=== PATIENT | male | born 1950 | race Hispanic/Latino ===

== ENCOUNTER 2019-01-23 07:33 | Day surgery (SDC) | payer MEDICARE ==
[2019-01-23] MEDS ORDERED: ASPIRIN EC 325 MG TAB PO ONE ×2 (08:40→08:54)
[2019-01-23] MEDS ORDERED: SODIUM CHLORIDE 0.9% 500 ML 500 ML ONE (08:52)
[2019-01-23] MEDS ORDERED: SODIUM CHLORIDE 0.9% 500 ML 500 ML IV SCH (09:00)
[2019-01-23 09:19] LABS: Basophils # (Auto) 0.1 K/mm3 (0.0-0.1); Basophils % (Auto) 1.1 % (0.0-1.8); Eosinophils # (Auto) 0.3 K/mm3 (0.0-0.4); Eosinophils % (Auto) 4.7 % (0.0-4.3); Hematocrit 40.1 % (35.5-45.6); Hemoglobin 13.7 gm/dl (11.8-15.2); Lymphocytes # (Auto) 0.9 K/mm3 (1.2-5.4); Lymphocytes % (Auto) 15.9 % (13.4-35.0); Mean Corpuscular HGB Conc 34 % (32-34); Mean Corpuscular Volume 90 fl (84-94); Monocytes # (Auto) 0.6 K/mm3 (0.0-0.8); Monocytes % (Auto) 11.9 % (0.0-7.3); Platelet Count 417 K/mm3 (140-440); Red Blood Count 4.48 M/mm3 (3.65-5.03); Red Cell Distribution Width 13.5 % (13.2-15.2)
[2019-01-23 09:29] LABS: BUN/Creatinine Ratio 13; Blood Urea Nitrogen 14 mg/dL (9-20); Calcium 8.9 mg/dL (8.4-10.2); Hemolysis Index 12
[2019-01-23] MEDS ORDERED: MIDAZOLAM 2 MG/2 ML INJ ONE (09:54)
[2019-01-23] MEDS ORDERED: HEPARIN/NS 5000 UNIT/500ML 1,000 ML IR ONE (09:54)
[2019-01-23] MEDS ORDERED: fentaNYL 100 MCG/2 ML INJ ONE (09:54)
[2019-01-23] MEDS ORDERED: HEPARIN 10,000 UNITS/10 ML VIAL ONE (09:54)
[2019-01-23] MEDS ORDERED: VERAPAMIL 5 MG/2 ML INJ ONE (09:54)
[2019-01-23] MEDS ORDERED: LIDOCAINE (2%) 20 MG/1 ML VIAL 20 ML MDV INFILTRATI ONE (09:54)
[2019-01-23] MEDS ORDERED: NITROGLYCERIN SYRINGE 3 ML ONE (10:23)
[2019-01-23 10:28] LABS: INR 1.15 (0.87-1.13); Partial Thromboplastin Time 26.6 Sec. (24.2-36.6)
[2019-01-23] MEDS: METOPROLOL TARTRATE 5 MG/5 ML INJ IV ONE ×2 (10:32→10:34)
--- NOTE | 2019-01-23 11:01 | Short Stay Summary ---
Short Stay Documentation Date of service: 01/23/19 - History H&P: obtained from office - Allergies and Medications Current Medications: Allergies No Known Allergies Allergy (Unverified 01/23/19 07:33) Home Medications Medication Instructions Recorded Confirmed Last Taken Type AtorvaSTATin [Lipitor] 10 mg PO QHS 01/23/19 01/23/19 01/22/19 History Fexofenadine HCl [Nayn Allergy] 60 mg PO PRN PRN 01/23/19 01/23/19 01/22/19 History Fluticasone/Salmeterol [Advair 1 puff IH BID 01/23/19 01/23/19 01/22/19 History Diskus 500-50 mcg] Losartan [Cozaar] 50 mg PO QDAY 01/23/19 01/23/19 01/22/19 History Tizanidine HCl [Tizanidine 2mg tab] 2 mg PO PRN PRN 01/23/19 01/23/19 3 Days Ago History ~01/20/19 Active Medications Sodium Chloride (Nacl 0.9% 500 Ml) 500 mls @ 50 mls/hr IV DIRECT ROBYN Stop: 01/23/19 18:59 Last Admin: 01/23/19 09:45 Dose: 50 mls/hr Documented by: - Brief post op/procedure progress note Date of procedure: 01/23/19 Pre-op diagnosis: sob and chf Post-op diagnosis: same Procedure: see report Anesthesia: local Estimated blood loss: none Pathology: none - Disposition Condition at discharge: Good Disposition: DC-01 TO HOME OR SELFCARE - Discharge Diagnoses (1) SOBOE (shortness of breath on exertion) Status: Acute (2) Asthma Status: Chronic Qualifiers: Asthma severity: unspecified severity Asthma complication type: unspecified (3) Cardiomyopathy Status: Acute Qualifiers: Cardiomyopathy type: dilated Qualified Code(s): I42.0 - Dilated ca rdiomyopathy (4) CAD (coronary artery disease) Status: Acute Qualifiers: Coronary Disease-Associated Artery/Lesion type: [place] artery [place] vs. transplanted heart: [place] heart Associated angina: without angina Qualified Code(s): I25.10 - Atherosclerotic heart disease of [place] coronary artery without angina pectoris (5) LBBB (left bundle branch block) Status: Chronic (6) Hypertension Status: Chronic Qualifiers: Hypertension type: essential hypertension Qualified Code(s): I10 - Essential (primary) hypertension (7) Hyperlipemia, mixed Status: Chronic Short Stay Discharge Plan Activity: advance as tolerated Diet: low fat, low cholesterol, low salt Wound: keep clean and dry Follow up with: SKYLER RIGGS MD [Primary Care Provider] - 7 Days
--- NOTE | 2019-01-23 11:08 | Cardiac Catherization Report ---
LEFT HEART CATHETERIZATION ORDERING: Dr. Richar Donnelly. Being done by Dr. Pool. CLINICAL INFORMATION: A 68-year-old patient with cardiac asthma, has moderate LV dysfunction, EF 25-30%. He is here for cardiomyopathy with shortness of breath to rule out coronary artery disease. Procedure was done with moderate sedation. Total sedation time was 20 minutes, started 10:16 a.m., finished at 10:36 a.m. Procedure was done via the right radial artery, sterile technique, local anesthesia, 6-[place] radial sheath inserted. PROCEDURE FINDINGS: Left system engaged with JL3.5 catheter. Left main is a medium caliber vessel that is patent, bifurcates into medium caliber, LAD is patent with diffuse mild to moderate luminal irregularities. Diagonal 1, diagonal 2, diagonal 3 are small caliber vessels, patent with diffuse mild irregularities. Ramus is a small to medium caliber vessel, patent with diffuse mild luminal irregularities. Circumflex and AV groove is a medium caliber vessel, patent with mild luminal irregularities. OM1 is a small caliber vessel, has an ostial 80% lesion. RCA engaged with JR4, is a large dominant vessel, patent with mild luminal irregularities, diffusely, small PDA, PLV. LV gram done in NANCY and MARTINEZ shows mild tachycardia with mild LV dysfunction, EF 40-45%. LVEDP 21 mmHg, LV is 147/14. Aortic is 144/87 mmHg. No gradient across the aortic valve on pullback. A 5-[place] catheters all taken over a guidewire, a 6-[place] radial sheath was discontinued. Radial band applied. No hematoma, no bleeding. SUMMARY: Left main patent, LAD patent, mild irregularities. Diagonal 1, diagonal 2, diagonal 3 small caliber vessel, patent with mild luminal irregularities. Circumflex is a medium caliber vessel, patent with mild luminal irregularities. Ramus small to medium caliber vessel, patent with mild irregularities. OM1 ostial 80%, small caliber vessel. RCA large, dominant, patent with mild luminal irregularities. PDA and PLV small caliber vessel with mild LV dysfunction, nonischemic cardiomyopathy. Continue risk factor modification. Discussed in detail with the patient and the patient's family. JOB# [id number] VRM/NTS
[2019-01-23 13:12] VITALS: BP 127/80
[2019-01-23] MEDS ORDERED: SODIUM CHLORIDE*PRIMING MACHINE ONLY FOR DIALYSIS MC ONE (18:13)
== END 2019-01-23 13:40 | disposition home or self-care (01) ==
LOC: CATHLABREC 07:33
PROVIDERS: ATTEND Internal Medicine
DX: I42.0 Dilated cardiomyopathy (principal); R06.02 Shortness of breath; J45.909 Unspecified asthma, uncomplicated; I25.10 Atherosclerotic heart disease of native coronary artery without angina pectoris; I44.7 Left bundle-branch block, unspecified; E78.2 Mixed hyperlipidemia; I11.0 Hypertensive heart disease with heart failure; I50.9 Heart failure, unspecified; M19.90 Unspecified osteoarthritis, unspecified site; Z79.899 Other long term (current) drug therapy; Z98.890 Other specified postprocedural states
CPT/HCPCS: 36415; 80048; 85025; 85610; 85730; 93005; 93010; 93458; 99156; C1894; J1644; J2250; J3010; J7030; J7040; Q9967

== ENCOUNTER 2019-01-24 12:08 | Emergency (ER) | payer MEDICARE ==
--- NOTE | 2019-01-24 12:32 | Event Note ---
ED Screening Note Date of service: 01/24/19 Time: 12:27 ED Screening Note: This is a 68 y.o. M. that presents to the ER with SOB and weakness. Patient states he SOB with exertion or movement. He had a heart cath yesterday with [facility] and feel worse than prior to procedure. Denies CP, palpitations, dizziness This initial assessment/diagnostic orders/clinical plan/treatment(s) is/are subject to change based on patients health status, clinical progression and re- assessment by fellow clinical providers in the ED. Further treatment and workup at subsequent clinical providers discretion. Patient/guardian urged not to elope from the ED as their condition may be serious if not clinically assessed and managed. Initial orders include: Labs, ekg, & cxr
--- NOTE | 2019-01-24 13:17 | XRay Report ---
CHEST 1 VIEW, 01/24/2019 1:06 PM CLINICAL INFORMATION/INDICATION: Shortness of breath COMPARISON: None FINDINGS: SUPPORT DEVICES: None. HEART: The cardiac silhouette is normal in size. LUNGS/PLEURA: The lungs are clear of focal airspace consolidation or significant pleural effusion. ADDITIONAL FINDINGS: No additional acute findings. IMPRESSION: 1. No evidence of acute cardiopulmonary process. Signer Name: Judy Welch MD Signed: 01/24/2019 1:13 PM Workstation Name: [id number]
[2019-01-24 13:55] LABS: Alanine Aminotransferase 17 units/L (7-56); BUN/Creatinine Ratio 13; Blood Urea Nitrogen 15 mg/dL (9-20); Calcium 9.5 mg/dL (8.4-10.2); Hemolysis Index 3
[2019-01-24 14:00] LABS: Basophils # (Auto) 0.1 K/mm3 (0.0-0.1); Basophils % (Auto) 0.6 % (0.0-1.8); Eosinophils # (Auto) 0.2 K/mm3 (0.0-0.4); Hematocrit 41.8 % (35.5-45.6); Hemoglobin 13.9 gm/dl (11.8-15.2); Lymphocytes # (Auto) 0.8 K/mm3 (1.2-5.4); Lymphocytes % (Auto) 7.5 % (13.4-35.0); Mean Corpuscular HGB Conc 33 % (32-34); Mean Corpuscular Volume 90 fl (84-94); Monocytes # (Auto) 0.9 K/mm3 (0.0-0.8); Platelet Count 430 K/mm3 (140-440); Red Blood Count 4.65 M/mm3 (3.65-5.03); Red Cell Distribution Width 13.4 % (13.2-15.2)
--- NOTE | 2019-01-24 16:18 | Cat Scan Report ---
CTA CHEST WITH IV CONTRAST, 01/24/2019 INDICATION: Shortness of breath and chest pain. History of recent cardiac catheterization TECHNIQUE: Axial CT images were obtained through the chest after injection of IV contrast. Coronal oblique 2-D reconstruction images were produced. 3 plane MIP reconstruction images were produced at an [employer] workstation. All CTs at this facility utilize dose reduction techniques including automated expos ure control, iterative reconstruction and weight based dosing when appropriate to reduce patient radi ation dose to as low as reasonable achievable. COMPARISON: Chest radiograph, 01/24/2019 FINDINGS: Evaluation of the pulmonary arteries demonstrate no filling defects within the central or segmental p ulmonary arteries to suggest pulmonary embolism. The heart is normal in size. Multiple prominent but not pathologically enlarged mediastinal lymph nodes are noted. There is a 2 cm focus of groundglass d ensity in the right lung apex. There is a trace left pleural effusion. Limited evaluation of the upper abdomen demonstrates no evidence of acute abnormality. Multiple hepat ic cysts are noted. Evaluation of bony structures demonstrates no evidence of acute bony abnormality. IMPRESSION: 1. No evidence of pulmonary embolism. 2. Focal right apical groundglass density which represents a nonspecific finding. Considerations woul d include focal infectious or inflammatory process versus scar. In the absence of any previous studie s, clinical correlation and short-term CT follow-up is recommended to document clearing. 2. Trace left pleural effusion. Signer Name: Judy Welch MD Signed: 01/24/2019 4:14 PM Workstation Name: [id number]
--- NOTE | 2019-01-24 16:18 | Emergency Department Report ---
ED Shortness of Breath HPI - General Chief Complaint: Dyspnea/Respdistress Stated Complaint: JCARLOS Time Seen by Provider: 01/24/19 12:27 Source: patient Mode of arrival: Ambulatory Limitations: No Limitations - History of Present Illness Initial Comments: 68-year-old male with a past medical history of hypertension, asthma, and CHF presents to the hospital complaining of persistent shortness of breath for several months. Dyspnea and exertion has been worsening for the last several months. Patient reports that he has had intermittent coughing and wheezing as well. He denies any current coughing or wheezing. He had outpatient cardiac cath performed by [facility] offender employment specialist yesterday. Showed EF of 20-25% and patient had mild irregularity did not require any acute intervention. Patient states he has felt worse since cardiac cath there was informed to come to the ER. Dr Wu informs the ED of patients anticipated arrival and requested CT angiogram chest. Patient has a fish icer Dr. Hinton whom he has seen 1 time recently Patient states yesterday he feels better since arriving to the ED. - Related Data Home Medications Medication Instructions Recorded Confirmed Last Taken AtorvaSTATin 10 mg PO QHS 01/23/19 01/23/19 01/22/19 Fexofenadine HCl [Nany Allergy] 60 mg PO PRN PRN 01/23/19 01/23/19 01/22/19 Fluticasone/Salmeterol [Advair 1 puff IH BID 01/23/19 01/23/19 01/22/19 Diskus 500-50 mcg] Losartan [Cozaar] 50 mg PO QDAY 01/23/19 01/23/19 01/22/19 Tizanidine HCl [Tizanidine 2mg tab] 2 mg PO PRN PRN 01/23/19 01/23/19 3 Days Ago ~01/20/19 Previous Rx's Medication Instructions Recorded Last Taken Type Azithromycin [Zithromax TAB] 250 mg PO QDAY #6 tablet 01/24/19 Unknown Rx Allergies Allergy/AdvReac Type Severity Reaction Status Date / Time No Known Allergies Allergy Unverified 01/23/19 07:33 ED Review of Systems ROS: Stated complaint: JCARLOS Other details as noted in HPI Comment: All other systems reviewed and negative ED Past Medical Hx - Past Medical History Previous Medical History?: Yes Hx Hypertension: Yes Hx Congestive Heart Failure: Yes Hx Arthritis: Yes (generalized) Hx Asthma: Yes - Surgical History Past Surgical History?: Yes Additional Surgical History: Cardiac cath - Social History Smoking Status: Never Smoker Substance Use Type: Alcohol - Medications Home Medications: Home Medications Medication Instructions Recorded Confirmed Last Taken Type AtorvaSTATin 10 mg PO QHS 01/23/19 01/23/19 01/22/19 History Fexofenadine HCl [Nany Allergy] 60 mg PO PRN PRN 01/23/19 01/23/19 01/22/19 History Fluticasone/Salmeterol [Advair 1 puff IH BID 01/23/19 01/23/19 01/22/19 History Diskus 500-50 mcg] Losartan [Cozaar] 50 mg PO QDAY 01/23/19 01/23/19 01/22/19 History Tizanidine HCl [Tizanidine 2mg tab] 2 mg PO PRN PRN 01/23/19 01/23/19 3 Days Ago History ~01/20/19 Azithromycin [Zithromax TAB] 250 mg PO QDAY #6 tablet 01/24/19 Unknown Rx ED Physical Exam - General Limitations: No Limitations - Other Other exam information: General: No acute distress Head: Atraumatic Eyes: normal appearance ENT: Moist mucous membranes Neck: Normal appearance, no midline tenderness Chest: Clear to auscultation bilaterally CV: Regular rate and rhythm Abdomen: Soft, normal bowel sounds, nontender, nondistended, no rebound or gu arding Back: Normal inspection Extremity: Normal inspection infection, full range of motion Neuro: Alert O x 3, no facial asymmetry, speech clear, no gross motor sensory deficit Psych: Appropriate behavior Skin: No rash ED Course Vital Signs 01/24/19 01/24/19 01/24/19 12:27 15:16 15:17 Temperature 98.9 F Pulse Rate 109 H 98 H Respiratory 16 23 21 Rate Blood Pressure 146/84 Blood Pressure 130/79 [Left] O2 Sat by Pulse 96 96 98 Oximetry 01/24/19 16:07 Temperature Pulse Rate 97 H Respiratory 20 Rate Blood Pressure Blood Pressure 151/86 [Left] O2 Sat by Pulse 98 Oximetry ED Medical Decision Making - Lab Data Result diagrams: 01/24/19 13:18 01/24/19 13:18 Lab Results 11/02/19 11/02/19 Range/Units 13:18 13:18 WBC 11.1 H (4.5-11.0) K/mm3 RBC 4.65 (3.65-5.03) M/mm3 Hgb 13.9 (11.8-15.2) gm/dl Hct 41.8 (35.5-45.6) % MCV 90 (84-94) fl MCH 30 (28-32) pg MCHC 33 (32-34) % RDW 13.4 (13.2-15.2) % Plt Count 430 (140-440) K/mm3 Lymph % (Auto) 7.5 L (13.4-35.0) % [place] % (Auto) 8.0 H (0.0-7.3) % Eos % (Auto) 2.0 (0.0-4.3) % Baso % (Auto) 0.6 (0.0-1.8) % Lymph # 0.8 L (1.2-5.4) K/mm3 [place] # 0.9 H (0.0-0.8) K/mm3 Eos # 0.2 (0.0-0.4) K/mm3 Baso # 0.1 (0.0-0.1) K/mm3 Seg Neutrophils % 81.9 H (40.0-70.0) % Seg Neutrophils # 9.1 H (1.8-7.7) K/mm3 Sodium 132 L (137-145) mmol/L Potassium 4.4 (3.6-5.0) mmol/L Chloride 95.9 L (98-107) mmol/L Carbon Dioxide 24 (22-30) mmol/L Anion Gap 17 mmol/L BUN 15 (9-20) mg/dL Creatinine 1.2 (0.8-1.5) mg/dL Estimated GFR > 60 ml/min BUN/Creatinine Ratio 13 % Glucose 119 H (75-100) mg/dL Calcium 9.5 (8.4-10.2) mg/dL Total Bilirubin 0.60 (0.1-1.2) mg/dL AST 18 (5-40) units/L ALT 17 (7-56) units/L Alkaline Phosphatase 108 (35-129) units/L Total Protein 7.4 (6.3-8.2) g/dL Albumin 4.0 (3.9-5) g/dL Albumin/Globulin Ratio 1.2 % - EKG Data -: EKG Interpreted by Nd EKG shows normal: sinus rhythm, ST-T waves (LBBB, no stemi) Rate: tachycardia (103) - EKG Data When compared to previous EKG there are: no significant change - Radiology Data Radiology results: report reviewed CTA CHEST WITH IV CONTRAST, 01/24/2019 INDICATION: Shortness of breath and chest pain. History of recent cardiac catheterization TECHNIQUE: Axial CT images were obtained through the chest after injection of IV contrast. Coronal oblique 2-D reconstruction images were produced. 3 plane MIP reconstruction images were produced at an independent workstation. All CTs at this facility utilize dose reduction techniques including automated exposure control, iterative reconstruction and weight based dosing when appropriate to reduce patient radiation dose to as low as reasonable achievable. COMPARISON: Chest radiograph, 01/24/2019 FINDINGS: Evaluation of the pulmonary arteries demonstrate no filling defects within the central or segmental pulmonary arteries to suggest pulmonary embolism. The heart is normal in size. Multiple prominent but not pathological ly enlarged mediastinal lymph nodes are noted. There is a 2 cm focus of groundglass density in the right lung apex. There is a trace left pleural effusion. Limited evaluation of the upper abdomen demonstrates no evidence of acute abnormality. Multiple hepatic cysts are noted. Evaluation of bony stru ctures demonstrates no evidence of acute bony abnormality. IMPRESSION: 1. No evidence of pulmonary embolism. 2. Focal right apical groundglass density which represents a nonspecific finding. Considerations would include focal infectious or inflammatory process versus scar. In the absence of any previous studies, clinical correlation and short-term CT follow-up is recommended to document clearing. 2. Trace left pleural effusion. - Medical Decision Making Patient had progressively worsening dyspnea several months. Patient was referred here by surgical scrub technologist since he had a cardiac cath yesterday and it did not identify a cardiac cause of dyspnea. CTA does not show a PE but did show a focal infiltrate, vs scarring vs inflammation. Patient denies acute infectious symptoms. Will be covered with a Z-Idris. Copy of report provided. Outpatient follow-up with his fish icer encouraged. - Differential Diagnosis NH, PE, COPD, asthma, pneumonia Critical Care Time: No Critical care attestation.: If time is entered above; I have spent that time in minutes in the direct care of this critically ill patient, excluding procedure time. ED Disposition Clinical Impression: SOBOE (shortness of breath on exertion), Lung infiltrate on CT, Nonischemic cardiomyopathy Disposition: DC- TO HOME OR SELFCARE Is pt being admited?: No Does the pt Need Aspirin: No Condition: Stable Instructions: Dyspnea (ED) Additional Instructions: Take the medication as prescribed. Follow-up with your doctor or doctor/clinic provided. Return if symptoms worsen as indicated by your discharge instruction s. Your CAT scan shows a right focal apical/upper ground glass density that is nonspecific. This could be a focal infectious, inflammatory process, or a scar. You have received antibiotics for treatment. You will need follow-up with your fish icer for further evaluation and monitoring. Please take the provided CAT scan report to your doctor for follow Prescriptions: Azithromycin [Zithromax TAB] 250 mg PO QDAY #6 tablet Referrals: your, fish icer [Other] - 3-5 Days Time of Disposition: 16:51
--- NOTE | 2019-01-24 16:43 | Consultation ---
History of Present Illness Consult date: 01/24/19 Consult reason: shortness of breath History of present illness: Mr. Fitzpatrick is a 68 y/o WM who presented to [facility] with SOB and weakness that began about two months ago. He is s/p cardiac catheterization on 01/23/19 and since then, he reports feeling worse. Inhalers for his asthma offered no improvement of symptoms. He follows with Dr. Donnelly in our office. He has a history significant for non-obstructive cardiomyopathy, LBBB, asthma and hypertension. A CXR was negative for acute findings and a CTA was negative for PE. EKG and labs unremarkable. An echocardiogram in December found an EF of 25 to 30 percent, normal RV function, no valvular abnormalities and no pericardial effusion. A cardiac catheterization on 01/23 found mostly patent coronaries with an OM1 ostial of 80%. Past History Past Medical History: hypertension, other (LBBB, nonischemic cardiomyopathy) Medications and Allergies Allergies Allergy/AdvReac Type Severity Reaction Status Date / Time No Known Allergies Allergy Unverified 01/23/19 07:33 Home Medications Medication Instructions Recorded Confirmed Last Taken Type AtorvaSTATin 10 mg PO QHS 01/23/19 01/23/19 01/22/19 History Fexofenadine HCl [Nany Allergy] 60 mg PO PRN PRN 01/23/19 01/23/19 01/22/19 History Fluticasone/Salmeterol [Advair 1 puff IH BID 01/23/19 01/23/19 01/22/19 History Diskus 500-50 mcg] Losartan [Cozaar] 50 mg PO QDAY 01/23/19 01/23/19 01/22/19 History Tizanidine HCl [Tizanidine 2mg tab] 2 mg PO PRN PRN 01/23/19 01/23/19 3 Days Ago History ~01/20/19 Review of Systems All systems: negative Constitutional: weakness Respiratory: shortness of breath Physical Examination Vital Signs Temp Pulse Resp BP Pulse Ox 98.9 F 109 H 16 130/79 96 01/24/19 12:27 01/24/19 12:27 01/24/19 12:27 01/24/19 12:27 01/24/19 12:27 General appearance: no acute distress HEENT: Positive: PERRL Neck: Positive: neck supple Cardiac: Positive: Reg Rate and Rhythm Lungs: Positive: clear to auscultation Neuro: Positive: Grossly Intact Abdomen: Positive: Unremarkable Male genitourinary: Positive: deferred Skin: Positive: Clear Incision: Cardiac Cath Site (right radial site - dressing removed. Site c/d/i ) Musculoskeletal: Normal Range of Motion Extremities: Present: normal Results 01/24/19 13:18 01/24/19 13:18 Cardiac Enzymes 01/24/19 Range/Units 13:18 AST 18 (5-40) units/L CBC 01/24/19 Range/Units 13:18 WBC 11.1 H (4.5-11.0) K/mm3 RBC 4.65 (3.65-5.03) M/mm3 Hgb 13.9 (11.8-15.2) gm/dl Hct 41.8 (35.5-45.6) % Plt Count 430 (140-440) K/mm3 Lymph # 0.8 L (1.2-5.4) K/mm3 [place] # 0.9 H (0.0-0.8) K/mm3 Eos # 0.2 (0.0-0.4) K/mm3 Baso # 0.1 (0.0-0.1) K/mm3 Comprehensive Metabolic Panel 01/24/19 Range/Units 13:18 Sodium 132 L (137-145) mmol/L Potassium 4.4 (3.6-5.0) mmol/L Chloride 95.9 L (98-107) mmol/L Carbon Dioxide 24 (22-30) mmol/L BUN 15 (9-20) mg/dL Creatinine 1.2 (0.8-1.5) mg/dL Glucose 119 H (75-100) mg/dL Calcium 9.5 (8.4-10.2) mg/dL AST 18 (5-40) units/L ALT 17 (7-56) units/L Alkaline Phosphatase 108 (35-129) units/L Total Protein 7.4 (6.3-8.2) g/dL Albumin 4.0 (3.9-5) g/dL - Imaging and Cardiology Echo: report reviewed (01/05/19: EF 25-30%, normal RV function, no valvular abnormalities, no pericardial effusion) Cardiac cath: report reviewed (01/23/19: Patient LM, LAD, cx and ramus. OM1 ostial 80%. EF 40-45%.) EKG interpretations - Telemetry EKG Rhythm: Sinus Rhythm AV and intraventricular conduction: left bundle branch block Assessment and Plan The patient is a 68 y/o male who presented to the ED with SOB that began two months ago, but worsened after his cardiac catheterization yesterday. The etiology of his dyspnea is unknown at this time. His cardiac status is stable and he may be discharged from our perspective. Follow up with Dr. Donnelly in 1-2 weeks ([phone]). The patient has been seen in conjunction with Dr. Wu, who agrees with the assessment and plan. - Patient Problems (1) SOBOE (shortness of breath on exertion) Current Visit: Yes Status: Acute (2) Cardiomyopathy Current Visit: No Status: Acute Qualifiers: Cardiomyopathy type: dilated Qualified Code(s): I42.0 - Dilated cardiomyopathy (3) Hypertension Current Visit: No Status: Chronic Qualifiers: Hypertension type: essential hypertension Qualified Code(s): I10 - Essential (primary) hypertension (4) LBBB (left bundle branch block) Current Visit: Yes Status: Chronic
[2019-01-24 17:16] VITALS: BP 153/89
== END 2019-01-24 17:05 | disposition home or self-care (01) ==
LOC: ED 12:08
DX: I42.8 Other cardiomyopathies (principal); J45.909 Unspecified asthma, uncomplicated; I11.0 Hypertensive heart disease with heart failure; M19.90 Unspecified osteoarthritis, unspecified site; I50.9 Heart failure, unspecified; Z79.899 Other long term (current) drug therapy
CPT/HCPCS: 36415; 71045; 71275; 80053; 85025; 93005; 93010; 99284; Q9967